=== PATIENT | male | born 1990 | race Asian ===

== ENCOUNTER 2021-12-09 23:06 | Emergency (ER) | payer OTHER, SELFPAY ==
[2021-12-09 23:15] VITALS: BP 145/90; PULSE 68; RESP 16; TEMP 36.9; O2SAT 97; BMI 33.2
[2021-12-10 02:15] LABS: Alanine Aminotransferase 34 IU/L (<50); Albumin 4.7 g/dL (3.5-5.0); Albumin Globulin Ratio 1.5 (1.0-2.8); Alkaline Phosphatase 70 U/L (38-126); Aspartate Aminotransferase 28 IU/L (17-59); BUN Creatinine Ratio 21.3 (6-22); Bilirubin Total 0.3 mg/dL (0.2-1.3); Blood Urea Nitrogen 23 mg/dL (9-20); Calcium 9.5 mg/dL (8.4-10.2); Carbon Dioxide 28 mmol/L (22-32); Chloride 104 mmol/L (98-107); Estimated Glomerular Filt Rate > 60.0 mL/min (>60); Globulin 3.1 g/dL (1.7-4.1); Glucose 123 mg/dL (70-100); HEMOLYSIS < 15 (0-50); Potassium 3.8 mmol/L (3.4-5.1); Sodium 140 mmol/L (137-145); Total Protein 7.8 g/dL (6.3-8.2)
[2021-12-10 02:18] LABS: Add Manual Diff / Slide Review NO; Basophils Absolute Auto 100 /uL (0-100); Basophils Percent Auto 1.1 % (0-2); Eosinophils Absolute Auto 400 /uL (0-450); Eosinophils Percent Auto 5.8 % (2-4); Hematocrit 44.9 % (41-53); Hemoglobin 15.2 g/dL (13.5-17.5); Lymphocytes Absolute Auto 2700 /uL (1100-4500); Lymphocytes Percent Auto 39.2 % (25-40); Mean Corpuscular HGB Conc 33.8 % (30-36); Mean Corpuscular Hemoglobin 29.9 PG (26-34); Mean Corpuscular Volume 88.3 fL (80-100); Monocytes Absolute Auto 500 /uL (0-900); Monocytes Percent Auto 7.9 % (3-14); Neutrophils Absolute Auto 3100 /uL (1500-7000); Platelet Count 250 X10^3/uL (150-400); Red Blood Cell Count 5.08 X10^6/uL (4.5-5.9); Red Cell Distribution Width 13.5 % (11.6-14.8); White Blood Cell Count 6.8 X10^3/uL (4.5-11.0)
[2021-12-10 02:55] LABS: Lipase 254 U/L (23-300)
--- NOTE | 2021-12-10 04:06 | ED_ITS ---
HPI - Abdominal Pain General Chief Complaint: Abdominal Pain Stated Complaint: stomach pains, 3 bowel movements with blood Time Seen by Provider: 12/10/21 02:43 Source: patient Mode of arrival: Ambulatory Limitations: no limitations History of Present Illness HPI narrative: This is a 31-year-old male comes emergency department complaint of abdominal pain and 3 bowel movements with bright red blood. 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 He has not been seen for it. He states there is some pain at the rectum. He thinks it might be harder have some hemorrhoids but he is not sure he has never been diagnosed. Denies any nausea or vomiting he denies any pain in his abdomen at this time. He denies any urinary symptoms, no dysuria, urgency or frequency. He has not any daily medications. He has had an appendectomy. No prior colonoscopies. Related Data Previous Rx's Medication Instructions Recorded hydrocortisone 1 %-pramoxine 1 % 1 applic [place] TID-QID PRN #10 g 12/10/21 rectal foam (Proctofoam HC) Allergies Allergy/AdvReac Type Severity Reaction Status Date / Time No Known Allergies Allergy Uncoded 02/08/18 18:28 Review of Systems Review of Systems ROS Unobtainable: All systems reviewed & are unremarkable except as noted in HPI and below Exam Narrative Exam Narrative: GENERAL: Alert and oriented x three, male in mild distress. HEENT: Head normocephalic, atraumatic, EOMI, pupils reactive, face symmetric, moist mucous membranes NECK: Supple, full range of motion CARDIOVASCULAR: Regular rate and rhythm without murmurs, rubs or gallops. RESPIRATORY: Breath sounds equal bilaterally, no wheezes rales or rhonchi. ABDOMEN: Soft, nontender. Normoactive bowel sounds all 4 quadrants. No guarding or rebound, rigidity, no mass. On rectal exam no easily palpable internal external hemorrhoids. I cannot visualize a fissure but patient has significant pain with digital rectal exam. No rectal masses appreciated. : No CVA tenderness EXTREMITIES: Normal range of motion, no clubbing or edema. Neurovascularly intact NEUROLOGICAL: Cranial nerves II through XII grossly intact. Moving all extremities SKIN: Warm, dry, no petechiae, no rashes or lesions. Initial Vital Signs Initial Vital Signs: Vital Signs Temperature 98.4 F 02/14/22 23:15 Pulse Rate 68 12/09/21 23:15 Respiratory Rate 16 12/09/21 23:15 Blood Pressure 145/90 H 12/09/21 23:15 Pulse Oximetry 97 12/09/21 23:15 Course Orders Ordered: ED Orders 12/09/21 23:19 Complete Blood Count AUTO DIFF Stat Comprehensive Metabolic Panel Stat 12/09/21 23:20 Type and Screen Stat 12/10/21 01:38 Lipase Stat Vital Signs Vital signs: Vital Signs - 8 hr 12/09/21 23:15 12/10/21 04:40 Temperature 98.4 F 98 F Pulse Rate 68 52 L Respiratory Rate 16 16 Blood Pressure 145/90 H 127/69 Pulse Oximetry 97 MDM - Abdominal Pain Lab Data Result diagrams: 12/10/21 01:38 12/10/21 01:38 Labs: Lab Results 12/10/21 12/10/21 12/10/21 Range/Units 01:38 01:38 01:38 WBC 6.8 (4.5-11.0) X10^3/uL RBC 5.08 (4.5-5.9) X10^6/uL Hgb 15.2 (13.5-17.5) g/dL Hct 44.9 (41-53) % MCV 88.3 (80-100) fL MCH 29.9 (26-34) PG MCHC 33.8 (30-36) % RDW 13.5 (11.6-14.8) % Plt Count 250 (150-400) X10^3/uL Neut % (Auto) 46.0 L (50-75) % Lymph % (Auto) 39.2 (25-40) % Barry % (Auto) 7.9 (3-14) % Eos % (Auto) 5.8 H (2-4) % Baso % (Auto) 1.1 (0-2) % Neut # (Auto) 3100 (0812-4321) /uL Lymph # (Auto) 2700 (4717-0009) /uL Barry # (Auto) 500 (0-900) /uL Eos # (Auto) 400 (0-450) /uL Baso # (Auto) 100 (0-100) /uL Sodium 140 (137-145) mmol/L Potassium 3.8 (3.4-5.1) mmol/L Chloride 104 (98-107) mmol/L Carbon Dioxide 28 (22-32) mmol/L BUN 23 H (9-20) mg/dL Creatinine 1.08 (0.66-1.25) mg/dL Estimated GFR > 60.0 (>60) mL/min BUN/Creatinine Ratio 21.3 (6-22) Glucose 123 H (70-100) mg/dL Calcium 9.5 (8.4-10.2) mg/dL Total Bilirubin 0.3 (0.2-1.3) mg/dL AST 28 (17-59) IU/L ALT 34 (<50) IU/L Alkaline Phosphatase 70 (38-126) U/L Total Protein 7.8 (6.3-8.2) g/dL Albumin 4.7 (3.5-5.0) g/dL Globulin 3.1 (1.7-4.1) g/dL Albumin/Globulin Ratio 1.5 (1.0-2.8) Lipase (23-300) U/L Blood Type B Positive Antibody Screen Negative 12/10/21 Range/Units 01:38 WBC (4.5-11.0) X10^3/uL RBC (4.5-5.9) X10^6/uL Hgb (13.5-17.5) g/dL Hct (41-53) % MCV (80-100) fL MCH (26-34) PG MCHC (30-36) % RDW (11.6-14.8) % Plt Count (150-400) X10^3/uL Neut % (Auto) (50-75) % Lymph % (Auto) (25-40) % Barry % (Auto) (3-14) % Eos % (Auto) (2-4) % Baso % (Auto) (0-2) % Neut # (Auto) (3938-2857) /uL Lymph # (Auto) (5260-6044) /uL Barry # (Auto) (0-900) /uL Eos # (Auto) (0-450) /uL Baso # (Auto) (0-100) /uL Sodium (137-145) mmol/L Potassium (3.4-5.1) mmol/L Chloride (98-107) mmol/L Carbon Dioxide (22-32) mmol/L BUN (9-20) mg/dL Creatinine (0.66-1.25) mg/dL Estimated GFR (>60) mL/min BUN/Creatinine Ratio (6-22) Glucose (70-100) mg/dL Calcium (8.4-10.2) mg/dL Total Bilirubin (0.2-1.3) mg/dL AST (17-59) IU/L ALT (<50) IU/L Alkaline Phosphatase (38-126) U/L Total Protein (6.3-8.2) g/dL Albumin (3.5-5.0) g/dL Globulin (1.7-4.1) g/dL Albumin/Globulin Ratio (1.0-2.8) Lipase 254 (23-300) U/L Blood Type Antibody Screen Point of care testing: Point of Care Testing Stool Occult Blood Negative Urine Dip Bedside Urine Glucose Negative Bedside Urine Bilirubin - Negative Bedside Urine Ketone - Negative Urine Specific [place] 1.030 Bedside Urine Occult Blood - Negative Bedside Urine pH 6.0 Bedside Urine Protein - Negative Bedside Urine Urobilinogen - Negative Bedside Urine Nitrite - Negative Bedside Urine Leukocytes - Negative Esterase MDM Narrative Medical decision making narrative: This is a 31-year-old male comes in complaint of abdominal discomfort which he states is resolved and his pain is more localized to his rectum he has had several episodes of bright red blood he had some clots at home. He has had episodes in the past which he states seemed to be more localized to the rectum. He describes bowel movements without constipation or diarrhea. Patient has never had a colonoscopy. Labs reassuring on exam patient is quite tender in the rectum I do not easily palpate a hemorrhoid but suspect he might have a fissure. I did discuss the day and could be appropriate from have colonoscopy. Referral was given. Discharge Plan Departure Patient Disposition: Home Clinical Impression: Bright red rectal bleeding Instructions: DI for Anal Fissure, DI for Rectal Bleeding Activity Restrictions/Additional Instructions: Follow-up with the [facility] for recheck. I would recommend a colonoscopy either through the [facility] or referral is included below locally here at [facility]. I suspect you may have an anal fissure I was not able to visualize a fissue but based on your exam I would use Proctofoam as prescribed. I would also recommend using a stool softener such as Colace once daily and making sure you drink plenty of fluids to keep your stool soft. Prescription sent to [facility] pharmacy. Please return for fevers, no abdominal pain, rapidly worsening rectal pain, increasing rectal bleeding with large clots, lightheadedness or passing out, chest pain, shortness of breath or other new or concerning symptoms. Prescriptions: New Proctofoam HC 1-1 % foam 1 applic [place] TID-QID PRN (Reason: hemorrhoids) Qty: 10 0RF Referrals: Jennifer Go MD [Physician] -
[2021-12-10 04:40] VITALS: BP 127/69; PULSE 52; RESP 16; TEMP 36.6
== END 2021-12-10 04:40 | disposition home or self-care (01) ==
PROVIDERS: Emergency Provider Emergency Medicine
DX: K62.5 Hemorrhage of anus and rectum (principal)
CPT/HCPCS: 36415; 80053; 81003; 82272; 83690; 85025; 86850; 86900; 86901; 99283